=== PATIENT | male | born 1965 | race Caucasian/White ===

== ENCOUNTER → 2016-09-25 | Outpatient (CLI) | payer OTHER ==
[2016-09-25 10:28] LABS: ABSOLUTE EOSINOPHILS # (AUTO) 0.2 10^3/uL (0.0-0.6); ABSOLUTE LYMPHOCYTES (AUTO) 1.9 10^3/uL (0.5-4.7); ABSOLUTE MONOCYTES (AUTO) 0.5 10^3/uL (0.1-1.4); ABSOLUTE NEUT (AUTO) 4.3 10^3/uL (1.7-8.2); BASOPHILS % (AUTO) 0.6 % (0-2); EOSINOPHILS % (AUTO) 3.1 % (0-6); HEMATOCRIT 48.8 % (37.9-51.0); HEMOGLOBIN 16.4 g/dL (13.5-17.0); HGB HCT DIFFERENCE 0.4; LYMPHOCYTES % (AUTO) 27.3 % (13-45); MEAN CORPUSCULAR HEMOGLOBIN 29.6 pg (27.0-33.4); MEAN CORPUSCULAR HGB CONC 33.5 g/dL (32.0-36.0); MEAN CORPUSCULAR VOLUME 88 fl (80-97); MONOCYTES % (AUTO) 7.8 % (3-13); RED BLOOD COUNT 5.52 10^6/uL (4.35-5.55); SEGMENTED NEUTROPHILS % (AUTO) 61.2 % (42-78)
[2016-09-25 10:48] LABS: CHOLESTEROL 266.09 mg/dL (0-200); Direct HDL 56 mg/dL (>40); TRIGLYCERIDES 166 mg/dL (<150)
[2016-09-25 10:59] LABS: DIRECT LDL 155 mg/dL (<100)
[2016-09-25 11:14] LABS: ERYTHROCYTE SEDIMENTATION RATE 6 mm/hr (0-15)
[2016-09-25 11:20] LABS: VLDL CHOLESTEROL 33.2 mg/dL (10-31)
== END ==
LOC: RAD 07:50
PROVIDERS: ATTEND Internal Medicine
DX: K59.09 Other constipation (principal); R10.31 Right lower quadrant pain; K44.9 Diaphragmatic hernia without obstruction or gangrene; K21.9 Gastro-esophageal reflux disease without esophagitis
CPT/HCPCS: 36415; 74249; 80061; 83036; 84153; 84443; 85025; 85652

== ENCOUNTER 2017-04-14 15:18 | Emergency (ER) | payer SELFPAY ==
[2017-04-14 15:24] VITALS: BP 149/90
[2017-04-14] MEDS ORDERED: LIDOCAINE 4%/TETRACAINE 0.5%/EPI 0.18% 5 ML TOPICAL SOLN TOP ONE (16:04)
[2017-04-14] MEDS ORDERED: OXYCODONE HCL IR 5 MG TABLET PO ONE (16:04)
--- NOTE | 2017-04-14 16:09 | ER Document Report ---
ED Animal Bite - General Chief Complaint: Dog Bite Stated Complaint: DOG BITE Time Seen by Provider: 04/14/17 15:57 Mode of Arrival: Ambulatory Information source: Patient TRAVEL OUTSIDE OF THE [place] IN LAST 30 DAYS: No - HPI Patient complains to provider of: Left 5th digit laceration Location of injury: LUE Severity of injury: Bitten Onset: Just prior to arrival Where did incident occur: on their property Quality of pain: Throbbing Pain Level: 4 Severity: Moderate Context of attack: Other - dog was biting their cat, he grabbed dog, began punching the dog, and reached in to try to separate the cat from the dog's mouth Summary of what happened: see above Type of animal: Dog Appearance of animal: Appeared well Breed and color: mix Animal's immunizations: UTD - per the theology teacher Animal control notified: Yes Notes: Pt still able to move finger through ROM w/o difficulty, but has the associated pain No numbness/tingling No fever No IV drug use - Related Data Allergies/Adverse Reactions: acetaminophen [From Darvocet-N] Allergy (Verified 04/14/17 15:21) Hives propoxyphene [From Darvocet-N] Allergy (Verified 04/14/17 15:21) Hives Past Medical History - Social History Smoking Status: Former Smoker Chew tobacco use (# tins/day): No Frequency of alcohol use: None Drug Abuse: None Family History: Reviewed & Not Pertinent Patient has suicidal ideation: No Patient has homicidal ideation: No Renal/ Medical History: Denies: Hx Peritoneal Dialysis GI Medical History: Reports: Hx Gastroesophageal Reflux Disease, Hx Ulcerative Colitis Review of Systems - Review of Systems Notes: REVIEW OF SYSTEMS: CONSTITUTIONAL : Denies fever, chills, or sweats. Denies recent illness. EENT: Denies eye, ear, throat, or mouth pain or symptoms. Denies nasal or sinus congestion or discharge. Denies throat, tongue, or mouth swelling or difficulty swallowing. CARDIOVASCULAR: Denies chest pain. Denies palpitations or racing or irregular heart beat. RESPIRATORY: Denies cough, cold, or chest congestion. Denies shortness of breath, difficulty breathing, or wheezing. GASTROINTESTINAL: Denies abdominal pain or distention. Denies nausea, vomiting , or diarrhea. Denies blood in vomitus, stools, or per rectum. Denies black, tarry stools. Denies constipation. GENITOURINARY: Denies difficulty urinating, painful urination, burning, frequency, blood in urine, or discharge. MUSCULOSKELETAL: see hpi SKIN: see hpi NEUROLOGICAL: Denies confusion or altered mental status. Denies passing out or loss of consciousness. Denies dizziness or lightheadedness. Denies headache. Denies weakness or paralysis or loss of use of either side. Denies problems with gait or speech. Denies sensory loss, numbness, or tingling. ALL OTHER SYSTEMS REVIEWED AND NEGATIVE. Dictation was performed using [employer] voice recognition software Physical Exam - Vital signs Vitals: Temp Pulse Resp BP Pulse Ox 97.7 F 75 14 149/90 H 99 04/14/17 15:21 04/14/17 15:21 04/14/17 15:21 04/14/17 15:21 04/14/17 15:21 Notes: PHYSICAL EXAMINATION: GENERAL: Well-appearing, well-nourished and in no acute distress. LUNGS: Breath sounds clear to auscultation bilaterally and equal. No wheezes rales or rhonchi. HEART: Regular rate and rhythm without murmurs, rubs, gallops. Musculoskeletal: Lt hand/fingers: FROM to passive/active. Strength 5+/5. No focal deficits noted. No bony tenderness. N/V intact. Extremities: No cyanosis, clubbing, or edema b/l. Peripheral pulses 2+. Capillary refill less than 3 seconds. NEUROLOGICAL: Cranial nerves grossly intact. Normal speech, normal gait. Normal sensory, motor exams PSYCH: Normal mood, normal affect. SKIN: + 1cm superficial laceration with 0.2cm gap running across the distal anterior 5th digit. No active bleeding. + tenderness. Otherwise skin: Warm, Dry, normal turgor, no rashes or lesions noted. Course - Re-evaluation Re-evalutation: 04/14/17 16:47 Patient is an afebrile, well-hydrated, 51-year-old male who presents the ED with a dog bite and finger laceration to the fifth left digit. Vitals are stable. PE is otherwise unremarkable for any focal neurological deficits, neurovascular compromise, obvious tendon/ligament rupture, obvious fracture or dislocation. X-ray was unremarkable for any acute pathology. Wound was thoroughly cleansed and irrigated and explored for foreign body with no yield. I did place one simple interrupted suture in the middle of the wound to help bring the wound edges back while still allowing for adequate drainage and healing by secondary intent. Patient reports that the immunization of the dog status is up-to-date. I will send him home with a prescription for Augmentin to take twice a day for 10 days. Wound instructions reviewed and wound dressing was placed along with a splint. Recheck with your PCM in 3-5 days. Consider consult with orthopedics if needed. Return to the ED with any worsening/concerning symptoms otherwise as reviewed in discharge. Patient is in agreement. - Vital Signs Vital signs: Temp Pulse Resp BP Pulse Ox 97.7 F 75 14 149/90 H 99 04/14/17 15:21 04/14/17 15:21 04/14/17 15:21 04/14/17 15:21 04/14/17 15:21 Procedures - Immobilization Left 5th digit Time completed: 16:45 Pre-Proc Neuro Vasc Exam: Normal Immobilizer type: Other - finger splint Performed by: PCT Post-Proc Neuro Vasc Exam: Normal, Unchanged from pre-exam - Laceration/Wound Repair Left 5th digit Time completed: 16:40 Wound length (cm): 1 Wound's Depth, Shape: Superficial, Linear. No: Into muscle, Irregular, Flap, Stellate, Nail-avulsed, Contused tissue, Other Laceration pre-procedure: Sterile PPE donned, Sterile drapes applied, Other - chlorhexadine Wound explored: Clean, No foreign body removed Wound Debrided: Minimal Wound Repaired With: Sutures Suture Size/Type: 4:0, Nylon Number of Sutures: 1 Layer Closure?: No Post-procedure wound care: Sterile dressing applied, Splint applied Post-procedure NV exam normal: Yes Complications: No Notes: 04/14/17 16:09 only 1 suture to bring back the wound while still allowing plenty of room for drainage s/p dog bite. Discharge - Discharge Clinical Impression: Dog bite Qualifiers: Encounter type: initial encounter Qualified Code(s): W54.0XXA - Bitten by dog, initial encounter Finger laceration Qualifiers: Encounter type: initial encounter Finger: little finger Damage to nail status: without damage Foreign body presence: without foreign body Laterality: left Qualified Code(s): S61.217A - Laceration without foreign body of left little finger without damage to nail, initial encounter Condition: Stable Disposition: HOME, SELF-CARE Instructions: Antibiotic Ointment Protection ([facility]), Laceration Care ([facility]), Prophylactic Antibiotic ([facility]), Soap Cleansing ([facility]), Tetanus Immunization Given ([facility]) Additional Instructions: Do not shower or bathe for 24 hours. After 24 hours you may shower but no submersion of the wound under water. Keep the original dressing on the wound for 24 hours unless the drainage soaks through. Change the dressing daily thereafter and keep the knots of the suture material clean from any dried discharge. You may leave the wound open to the air once there is no more discharge. Return to the ED and/or your PCM in 2-3 days for a recheck. Monitor for any signs of worsening pain or redness, purulent drainage, streaks, and/or fever. Return to the ED if noticing any of the above symptoms or as needed. Take medications as directed. Your sutures will need to be removed in 10-12 days. Monitor behavior of dog. Rest, use splint as directed tylenol/ibuprofen if needed Keep skin clean Prescriptions: Amox Tr/Potassium Clavulanate [Augmentin 875-125 Tablet] 1 tab PO BID 10 Days # 20 tablet Forms: Elevated Blood Pressure Referrals: [facility] [Provider Group] - Follow up as needed
[2017-04-14] MEDS ORDERED: DIPH/PERTUSS(ACELL)/TETANUS VAC/PF 0.5 ML SYR (>=10YO) IM ONE (16:10)
--- NOTE | 2017-04-14 16:27 | RADIOLOGY REPORT (SQ) ---
EXAM DESCRIPTION: FINGER LEFT COMPLETED DATE/TIME: 04/14/2017 4:17 pm REASON FOR STUDY: dog bite left distal 5th digit anterior COMPARISON: None. NUMBER OF VIEWS: Three views. TECHNIQUE: AP, lateral, and oblique images acquired of the left fifth finger. LIMITATIONS: None. FINDINGS: MINERALIZATION: Normal. BONES: No acute fracture or dislocation. No worrisome bone lesions. SOFT TISSUES: Soft tissue irregularity is seen overlying the 5th digit distal phalanx. OTHER: No other significant finding. IMPRESSION: Soft tissue injury without retained radiopaque foreign body or underlying osseous injury . COMMENT: SITE OF TRAUMA/COMPLAINT MARKED/STAMP COMPLETED: Yes TECHNICAL DOCUMENTATION: JOB ID: [id number] [employer]- All Rights Reserved
== END 2017-04-14 17:05 | disposition home or self-care (01) ==
LOC: ER 15:18
DX: S61.257A Open bite of left little finger without damage to nail, initial encounter (principal); W54.0XXA Bitten by dog, initial encounter; Y93.K9 Activity, other involving animal care; Y92.009 Unspecified place in unspecified non-institutional (private) residence as the place of occurrence of the external cause; Z88.5 Allergy status to narcotic agent; Z87.891 Personal history of nicotine dependence
CPT/HCPCS: 99283; 90471; 73140; 90715; 12001; A6266

== ENCOUNTER 2017-04-24 14:32 | Emergency (ER) | payer SELFPAY ==
--- NOTE | 2017-04-24 14:58 | ER Document Report ---
ED Suture/Wound Recheck - General Chief Complaint: Suture Removal Stated Complaint: SUTURE REMOVAL Time Seen by Provider: 04/24/17 14:51 Mode of Arrival: Ambulatory Information source: Patient Notes: 31-year-old male presented to ED for suture removal. Patient states he was bitten by a dog last week on the fifth digit and had one suture placed. Wound is well-healed no redness or inflammation noted no signs or symptoms of any infection. Will remove suture discharge patient home. TRAVEL OUTSIDE OF THE [place] IN LAST 30 DAYS: No - HPI Previous ED treatment: Dog bite repair Antibiotics given previously: Prescription Quality of pain: No pain Severity: None Pain Level: Denies Context: Injury Symptoms since procedure: No complaints Exacerbated by: Denies Relieved by: Denies - Related Data Allergies/Adverse Reactions: acetaminophen [From Darvocet-N] Allergy (Verified 04/24/17 14:35) Hives propoxyphene [From Darvocet-N] Allergy (Verified 04/24/17 14:35) Hives Past Medical History - General Information source: Patient - Social History Smoking Status: Former Smoker Cigarette use (# per day): No Chew tobacco use (# tins/day): No Smoking Education Provided: No Frequency of alcohol use: None Drug Abuse: None Lives with: Spouse/Significant other Family History: Reviewed & Not Pertinent Patient has suicidal ideation: No Patient has homicidal ideation: No - Past Medical History Cardiac Medical History: Reports: None Pulmonary Medical History: Reports: None EENT Medical History: Reports: None Neurological Medical History: Reports: None Endocrine Medical History: Reports: None Renal/ Medical History: Reports: None Malignancy Medical History: Reports None GI Medical History: Reports: Hx Gastroesophageal Reflux Disease, Hx Ulcerative Colitis Musculoskeltal Medical History: Reports None Skin Medical History: Reports None Psychiatric Medical History: Reports: None Traumatic Medical History: Reports: None Infectious Medical History: Reports: None Surgical Hx: Negative Past Surgical History: Reports: None Review of Systems - Review of Systems Constitutional: No symptoms reported EENT: No symptoms reported Cardiovascular: No symptoms reported Respiratory: No symptoms reported Gastrointestinal: No symptoms reported Genitourinary: No symptoms reported Male Genitourinary: No symptoms reported Musculoskeletal: No symptoms reported Skin: Other - 1 sutured to the left fifth finger Hematologic/Lymphatic: No symptoms reported Neurological/Psychological: No symptoms reported -: Yes All other systems reviewed and negative Physical Exam - Vital signs Vitals: Temp Pulse Resp BP Pulse Ox 97.9 F 63 16 128/82 H 98 04/24/17 14:35 04/24/17 14:35 04/24/17 14:35 04/24/17 14:35 04/24/17 14:35 Interpretation: Normal - General General appearance: Appears well, Alert - HEENT Head: Normocephalic, Atraumatic Eyes: Normal Pupils: PERRL - Respiratory Respiratory status: No respiratory distress Chest status: Nontender Breath sounds: Normal Chest palpation: Normal - Cardiovascular Rhythm: Regular Heart sounds: Normal auscultation Murmur: No - Abdominal Inspection: Normal Distension: No distension Bowel sounds: Normal Tenderness: Nontender Organomegaly: No organomegaly - Back Back: Normal, Nontender - Extremities General upper extremity: Normal inspection, Nontender, Normal color, Normal ROM , Normal temperature General lower extremity: Normal inspection, Nontender, Normal color, Normal ROM , Normal temperature, Normal weight bearing. No: Joanna's sign - Neurological Neuro grossly intact: Yes Cognition: Normal Orientation: AAOx4 [place] Coma Scale Eye Opening: Spontaneous [place] Coma Scale Verbal: Oriented [place] Coma Scale Motor: Obeys Commands [place] Coma Scale Total: 15 Speech: Normal Motor strength normal: LUE, RUE, LLE, RLE Sensory: Normal - Psychological Associated symptoms: Normal affect, Normal mood - Skin Skin Temperature: Warm Skin Moisture: Dry Skin Color: Normal Location of irregularity: Other - 1 suture in the left fifth finger clean no redness no drainage skin well approximated granulation advanced Course - Re-evaluation Re-evalutation: 04/24/17 21:03 Sutures removed bacitracin applied and patient discharged home - Vital Signs Vital signs: Temp Pulse Resp BP Pulse Ox 97.9 F 80 15 120/88 H 96 04/24/17 15:15 04/24/17 15:15 04/24/17 15:15 04/24/17 15:15 04/24/17 15:15 Discharge - Discharge Clinical Impression: Visit for suture removal Condition: Stable Disposition: HOME, SELF-CARE Instructions: Suture Removal Additional Instructions: Acetaminophen Acetaminophen may be taken for pain relief or fever control. It's much safer than aspirin, offering a wider range of "safe" dosages. It is safe during . Some brand names are Tylenol, Panadol, Datril, Anacin 3, Tempra, and Liquiprin. Acetaminophen can be repeated every four hours. The following are maximum recommended dosages: WEIGHT Dose Drops Elixir Chewable( 80mg) (LBS.) drprs=droppers tsp=teaspoon 6 40 mg .4 ml (1/2) 6-11 80 mg .8 ml (full) 1/2 tsp 1 tab 12-16 120 mg 1 1/2 drprs 3/4 tsp 1 1/2 tabs 17-23 160 mg 2 drprs 1 tsp 2 tabs 24-30 240 mg 3 drprs 1 1/2 tsp 3 tabs 30-35 320 mg 2 tsp 4 tabs 36-41 360 mg 2 1/4 tsp 4 1 /2 tabs 42-47 400 mg 2 1/2 tsp 5 tabs 48-53 480 mg 3 tsp 6 tabs 54-59 520 mg 3 1/4 tsp 6 1 /2 tabs 60-64 560 mg 3 1/2 tsp 7 tabs 65-70 600 mg 3 3/4 tsp 7 1 /2 tabs 71-76 640 mg 4 tsp 8 tabs 77-82 720 mg 4 1/2 tsp 9 tabs 83-88 800 mg 5 tsp 10 tabs >89 pounds or adults 650 mg to 900 mg Acetaminophen can be repeated every four hours. Maximum daily dose not to exceed 4000 mg. These maximum recommended dosages are slightly higher than the dosages written on the product container, but these dosages are very safe and well below the toxic dosage for acetaminophen. FOLLOW-UP CARE: If you have been referred to a physician for follow-up care, call the physician s office for an appointment as you were instructed or within the next two days. If you experience worsening or a significant change in your symptoms, notify the physician immediately or return to the Emergency Department at any time for re-evaluation. Forms: Elevated Blood Pressure Referrals: [facility] [Provider Group] - Follow up as needed
[2017-04-24 15:17] VITALS: BP 120/88
== END 2017-04-24 15:15 | disposition home or self-care (01) ==
LOC: ER 14:32
DX: Z48.02 Encounter for removal of sutures (principal); Z87.891 Personal history of nicotine dependence